=== PATIENT | female | born 1985 | race Caucasian/White ===

== ENCOUNTER → 2020-12-27 | Day surgery (SDC) | payer OTHER ==
[~2020-12-27] MED LIST: ANAPROX DS550 MG PO; ENDOCET 5-3251 EACH PO; PRENATAL TABLE1 EAC3 PO; SERTRALINE HCL50 MG PO
[2020-12-27 09:53] LABS: HEMOGLOBIN 13.5 gm/dl (12.3-15.3); RED BLOOD COUNT 4.48 M/UL (4.00-5.10); WHITE BLOOD COUNT 6.2 K/UL (4.5-11.0)
== END | disposition home or self-care (01) ==
LOC: OR 08:47
PROVIDERS: Obstetrics & Gynecology
PROC: 10D17ZZ Extraction of Products of Conception, Retained, Via Natural or Artificial Opening (ICD-10-PCS; principal; 2020-12-27 11:30)
DX: O02.1 Missed abortion (principal); Z79.899 Other long term (current) drug therapy; Z20.822 Contact with and (suspected) exposure to COVID-19
CPT/HCPCS: 36415; 81001; 85025; 86850; 86900; 86901; J0690; J1100; J1885; J2001; J2210; J2250; J2405; J2704; J3010; J7120; U0002

== ENCOUNTER 2021-11-23 17:28 | Outpatient (CLI) | payer OTHER | END 2021-11-23 19:09 | disposition home or self-care (01) | LOC: GENOP 17:28 | DX: O99.891 Other specified diseases and conditions complicating pregnancy (principal); N89.8 Other specified noninflammatory disorders of vagina; O99.343 Other mental disorders complicating pregnancy, third trimester; F31.9 Bipolar disorder, unspecified; F41.9 Anxiety disorder, unspecified; Z3A.34 34 weeks gestation of pregnancy | CPT/HCPCS: 81001; 83518; G0463 ==

== ENCOUNTER 2021-12-17 19:56 | Outpatient (CLI) | payer OTHER | END 2021-12-17 22:44 | disposition home or self-care (01) | LOC: GENOP 19:56 | DX: O47.1 False labor at or after 37 completed weeks of gestation (principal); O99.343 Other mental disorders complicating pregnancy, third trimester; F31.9 Bipolar disorder, unspecified; F41.9 Anxiety disorder, unspecified; Z3A.37 37 weeks gestation of pregnancy | CPT/HCPCS: 59025; 81001; 96360; 96374; J0696 ==

== ENCOUNTER 2021-12-24 21:57 | Inpatient (IN) | payer OTHER ==
[~2021-12-24] VITALS: Ht 170.2 cm; Wt 77.1 kg
[2021-12-24 23:49] LABS: RED BLOOD COUNT 3.96 M/UL (4.00-5.10); WHITE BLOOD COUNT 7.9 K/UL (4.5-11.0)
[2021-12-25] MEDS ORDERED: IBUPROFEN600 MG PO (11:52)
[2021-12-25] MEDS ORDERED: HYDROCODON-ACE1 EAC6 PO (11:52)
[2021-12-25] MEDS ORDERED: COLACE 100MG C100 MG PO (11:52)
[2021-12-26 06:01] LABS: HEMOGLOBIN 11.8 gm/dl (12.3-15.3)
[2021-12-27] MEDS ORDERED: COLACE 100MG C100 MG PO (13:05)
[2021-12-27] MEDS ORDERED: IBUPROFEN800 MG PO (13:05)
[2021-12-27] MEDS ORDERED: HYDROCODON-ACE1 EAC2 PO (13:05)
== END 2021-12-27 14:22 | disposition home or self-care (01) | DRG 788 ==
LOC: GENOP 21:57 → NSRY 12-25 08:40 → OB 12-25 08:40
PROVIDERS: ADMIT Obstetrics & Gynecology
PROC: 4A1HXCZ Monitoring of Products of Conception, Cardiac Rate, External Approach (ICD-10-PCS; principal; 2021-12-25 10:35)
PROC: 10D00Z1 Extraction of Products of Conception, Low, Open Approach (ICD-10-PCS; principal; 2021-12-25 10:35)
DX: O34.211 Maternal care for low transverse scar from previous cesarean delivery (principal); O99.344 Other mental disorders complicating childbirth; Z37.0 Single live birth; Z20.822 Contact with and (suspected) exposure to COVID-19; F31.9 Bipolar disorder, unspecified; Z3A.39 39 weeks gestation of pregnancy; Z83.3 Family history of diabetes mellitus; Z82.49 Family history of ischemic heart disease and other diseases of the circulatory system; Z84.1 Family history of disorders of kidney and ureter; Z81.8 Family history of other mental and behavioral disorders; Z84.89 Family history of other specified conditions
CPT/HCPCS: 36415; 81001; 82800; 85014; 85018; 85025; C9113; J0690; J1170; J1885; J2274; J2370; J2405; J2590; J2765; J3010; J7120; U0002